=== PATIENT | male | born 1990 | race Caucasian/White ===

== ENCOUNTER 2018-04-09 13:53 | Inpatient (IN) | payer OTHER ==
[2018-04-09 14:37] VITALS: BMI 18.5
--- NOTE | 2018-04-09 16:56 | HP ---
CIWA Score Nausea/Vomitin Muscle Tremors: 2 Anxiety: 2 Agitation: 2 Paroxysmal Sweats: 2 Orientation: 0-Oriented Tacttile Disturbances: 0-None Auditory Disturbances: 0-None Visual Disturbances: 0-None Headache: 2-Mild CIWA-Ar Total Score: 12 - Admission Criteria OASAS Guidelines: Admission for Medically Managed Detox: Requires at least one of the followin. CIWA greater than 12 2. Seizures within the past 24 hours 3. Delirium tremens within the past 24 hours 4. Hallucinations within the past 24 hours 5. Acute intervention needed for co occurring medical disorder 6. Acute intervention needed for co occurring psychiatric disorder 7. Severe withdrawal that cannot be handled at a lower level of care (continued vomiting, continued diarrhea, abnormal vital signs) requiring intravenous medication and/or fluids 8. Patient presents the following: CIWA greater than 12 Admission Criteria Met: Admission criteria met Admission ROS [facility] Chief Complaint: Detox from alcohol, cocaine and THC. 27 yo with no medical problems, here for detox. Was last in detox/rehab at [facility] in 2017 for alcohol. Says he relapsed to use a month after discharge. alcohol- 1 pint/day of whiskey. No h/o seizures/DT's. Last use 2 hours ago. Cocaine- $20/day, last use 2 hours, inhaling THC- 1/4 bag /day DUR- no controlled substances Utox: pos for THC, nicole, AYANA- 0 Allergies/Adverse Reactions: Allergies Allergy/AdvReac Type Severity Reaction Status Date / Time Penicillins Allergy Severe Difficulty Verified 04/09/18 16:11 Breathing Exam Limitations: No Limitations - Ebola screening Have you traveled outside of the country in the last 21 days: No Have you had contact with anyone from an Ebola affected area: No Have you been sick,other than usual withdrawal symptoms: No Do you have a fever: No - Review of Systems Constitutional: No Symptoms Reported Patient History - Patient Medical History Hx Asthma: No Hx Chronic Obstructive Pulmonary Disease (COPD): No Hx Cardiac Disorders: No Hx Hypertension: No Hx Seizures: No Hx Diabetes: No Hx Gastrointestinal Disorders: No Hx Genitourinary Disorders: No Hx Sexually Transmitted Disorders: No Hx Renal Disease (ESRD): No Hx Depression: No Hx Suicide Attempt: No Hx Schizophrenia: No - Patient Surgical History Past Surgical History: No Hx Neurologic Surgery: No Hx Cataract Extraction: No Hx Cardiac Surgery: No Hx Lung Surgery: No Hx Breast Surgery: No Hx Breast Biopsy: No Hx Abdominal Surgery: No Hx Appendectomy: No Hx Cholecystectomy: No Hx Genitourinary Surgery: No Hx Section: No Hx Orthopedic Surgery: No Anesthesia Reaction: No - PPD History Previous Implant?: Yes Documented Results: Negative w/o proof Implanted On Prior R Admission?: No - Smoking Cessation Smoking history: Current every day smoker Have you smoked in the past 12 months: Yes Aproximately how many cigarettes per day: 20 Hx Chewing Tobacco Use: No Initiated information on smoking cessation: Yes 'Breaking Loose' booklet given: 04/09/18 - Substance & Tx. History Hx Alcohol Use: Yes Hx Substance Use: Yes Substance Use Type: Cocaine, Marijuana Hx Substance Use Treatment: Yes - Substances Abused Alcohol Route: Oral Frequency: Daily Amount used: 1 [place] Age of first use: 13 Date of Last Use: 04/09/18 Cocaine Route: Inhalation Frequency: Daily Amount used: $20 Age of first use: 16 Date of Last Use: 04/09/18 Marijuana/Hashish Route: Smoking Frequency: Daily Amount used: 1/4 OF AN OUNCE Age of first use: 11 Date of Last Use: 04/09/18 Family Disease History - Family Disease History Family History: Denies (doesnot know) Admission Physical Exam BHS - Vital Signs Vital Signs: Vital Signs - 24 hr 04/09/18 14:35 Temperature 98.5 F Pulse Rate 94 H Respiratory 18 Rate Blood Pressure 136/96 - Physical General Appearance: Yes: Within Normal Limits HEENTM: Yes: Within Normal Limits Respiratory: Yes: Within Normal Limits Neck: Yes: Within Normal Limits Cardiology: Yes: Within Normal Limits Abdominal: Yes: Within Normal Limits Genitourinary: Yes: Within Normal Limits Back: Yes: Within Normal Limits Musculoskeletal: Yes: Within Normal Limits Extremities: Yes: Within Normal Limits Neurological: Yes: Within Normal Limits Integumentary: Yes: Within Normal Limits Lymphatic: Yes: Within Normal Limits - Diagnostic (1) Alcohol use disorder Current Visit: Yes Status: Acute (2) Cannabis use disorder, mild, abuse Current Visit: Yes Status: Acute (3) Cocaine use disorder Current Visit: Yes Status: Acute (4) Tobacco use disorder Current Visit: Yes Status: Acute BHS Breath Alcohol Content Breath Alcohol Content: 0 Urine Drug Screen - Results Drug Screen Negative: No Urine Drug Screen Results: THC-Marijuana, NICOLE-Cocaine
[2018-04-09] MEDS ORDERED: MAG HYDROX/AL HYDROX/SIMETH 30 ML UNIT-DOSE CUP PO PRN (16:59)
[2018-04-09] MEDS ORDERED: guaiFENesin/D-METHORPHAN HB 10 ML UNIT-DOSE CUPS PO PRN (16:59)
[2018-04-09] MEDS ORDERED: P-EPHED 60MG/TRIPROLIDI 2.5MG TABLET PO PRN (16:59)
[2018-04-09] MEDS ORDERED: MAGNESIUM CITRATE 300 ML BOTTLE PO PRN (16:59)
[2018-04-09] MEDS ORDERED: MENTHOL/PHENOL 1 EACH UD MM PRN (16:59)
[2018-04-09] MEDS ORDERED: LOPERAMIDE HCL 2 MG CAPSULE PO PRN (16:59)
[2018-04-09] MEDS ORDERED: MAGNESIUM HYDROX 2400MG/30ML ORAL SUSPENSION 30 ML CUP PO PRN (16:59)
[2018-04-09] MEDS ORDERED: ACETAMINOPHEN 325 MG TABLET (FP) PO PRN (16:59)
[2018-04-09] MEDS ORDERED: NICOTINE POLACRILEX 4 MG GUM BC PRN (16:59)
[2018-04-09] MEDS ORDERED: IBUPROFEN 400 MG TABLET (FP) PO PRN (16:59)
[2018-04-09] MEDS ORDERED: chlordiazePOXIDE HCL 25 MG CAPSULE ONE (18:40)
[2018-04-09] MEDS ORDERED: chlordiazePOXIDE HCL 25 MG CAPSULE PO ONE (19:00)
[2018-04-09] MEDS ORDERED: MELATONIN 5 MG TABLETS PO PRN (22:00)
[2018-04-09] MEDS: THIAMINE HCL 100 MG TABLET (FP) PO SCH (22:19)
[2018-04-09] MEDS: chlordiazePOXIDE HCL 25 MG CAPSULE PO SCH (22:19)
[2018-04-10] MEDS: chlordiazePOXIDE HCL 25 MG CAPSULE PO SCH ×3 (05:35→18:18)
[2018-04-10] MEDS: PRENATAL VITAMINS W/ FOLIC ACID TABLET (FP) PO SCH (10:18)
[2018-04-10 10:48] LABS: HEMATOCRIT 43.8 % (35.4-49); MCH 32.1 pg (25.7-33.7); MCHC 34.4 g/dl (32.0-35.9); MEAN CELL VOLUME 93.4 fl (80-96); MEAN PLT VOLUME 7.9 fl (7.5-11.1); PLATELET COUNT 319 K/MM3 (134-434); RBC 4.69 M/mm3 (4.00-5.60); RDW 12.5 % (11.9-15.9); WHITE BLOOD COUNT 4.8 K/mm3 (4.0-10.0)
[2018-04-10 11:06] LABS: ALBUMIN 3.9 g/dl (3.4-5.0); ALK PHOS 52 U/L (45-117); ANION GAP 7 MMOL/L (8-16); BILIRUBIN,TOTAL 1.4 mg/dL (0.2-1); BLOOD UREA NITROGEN 14 mg/dL (7-18); CALCIUM 8.7 mg/dL (8.5-10.1); CHLORIDE 107 mmol/L (98-107); CO2 27 mmol/L (21-32); CREATININE 0.8 mg/dL (0.55-1.3); GLUCOSE,RANDOM 96 mg/dL (74-106); POTASSIUM 4.1 mmol/L (3.5-5.1); SGOT/AST 17 U/L (15-37); SGPT/ALT 24 U/L (13-61); SODIUM 141 mmol/L (136-145); TOT PROT 6.5 g/dl (6.4-8.2)
--- NOTE | 2018-04-10 13:18 | PN ---
BHS CIWA - CIWA Score Nausea/Vomitin Muscle Tremors: 3 Anxiety: 3 Agitation: 0-Normal Activity Paroxysmal Sweats: 3 Orientation: 0-Oriented Tacttile Disturbances: 0-None Auditory Disturbances: 0-None Visual Disturbances: 2-Mild Sensitivity Headache: 2-Mild CIWA-Ar Total Score: 16 BHS Progress Note (SOAP) Subjective: Tremors, Sweating, H/A, Body Aches, Nausea. Objective: PATIENT A & O X 3, OBSERVED AMBULATING ON UNIT. IN NO ACUTE DISTRESS. PATIENT REPORTS THAT HIS BP SOMETIMES BECOMES TEMPORARILY ELEVATED HE FEELS "STRESSED." PATIENT DENIES CHEST PAIN. 04/10/18 13:16 Vital Signs Temperature 98.1 F 04/10/18 09:04 Pulse Rate 70 04/10/18 09:04 Respiratory Rate 18 04/10/18 09:04 Blood Pressure 128/78 04/10/18 09:04 O2 Sat by Pulse Oximetry (%) Laboratory Tests 04/10/18 04/10/18 04/10/18 07:00 07:00 07:00 WBC 4.8 RBC 4.69 Hgb 15.0 Hct 43.8 MCV 93.4 MCH 32.1 MCHC 34.4 RDW 12.5 Plt Count 319 MPV 7.9 Sodium 141 Potassium 4.1 Chloride 107 Carbon Dioxide 27 Anion Gap 7 L BUN 14 Creatinine 0.8 Creat Clearance w eGFR > 60 Random Glucose 96 Calcium 8.7 Total Bilirubin 1.4 H AST 17 ALT 24 Alkaline Phosphatase 52 Total Protein 6.5 Albumin 3.9 RPR Titer Nonreactive HIV 1&2 Antibody Screen HIV P24 Antigen 04/10/18 09:20 WBC RBC Hgb Hct MCV MCH MCHC RDW Plt Count MPV Sodium Potassium Chloride Carbon Dioxide Anion Gap BUN Creatinine Creat Clearance w eGFR Random Glucose Calcium Total Bilirubin AST ALT Alkaline Phosphatase Total Protein Albumin RPR Titer HIV 1&2 Antibody Screen Negative HIV P24 Antigen Negative LABS NOTED. 04/10/18 13:17 Assessment: 04/10/18 13:17 WITHDRAWAL SYMPTOMS. Plan: CONTINUE DETOX., CONTINUE TO MONITOR BLOOD PRESSURE.
[2018-04-10] MEDS: chlordiazePOXIDE 5 MG CAPSULE PO PRN (19:30)
[2018-04-10] MEDS: THIAMINE HCL 100 MG TABLET (FP) PO SCH (22:05)
[2018-04-10] MEDS: chlordiazePOXIDE 5 MG CAPSULE PO SCH (22:05)
[2018-04-11] MEDS: chlordiazePOXIDE 5 MG CAPSULE PO SCH ×4 (05:55→22:08)
[2018-04-11] MEDS: PRENATAL VITAMINS W/ FOLIC ACID TABLET (FP) PO SCH (10:18)
--- NOTE | 2018-04-11 16:23 | PN ---
S CIWA - CIWA Score Nausea/Vomitin-No Nausea/No Vomiting Muscle Tremors: 1-None Visible, but [place] Anxiety: 1-Mildly Anxious Agitation: 1-Slight > Activity Paroxysmal Sweats: 1-Minimal Palms Moist Orientation: 0-Oriented Tacttile Disturbances: 0-None Auditory Disturbances: 0-None Visual Disturbances: 0-None Headache: 0-None Present CIWA-Ar Total Score: 4 BHS Progress Note (SOAP) Subjective: s- pt without complaints, doing well with alcohol detox protocol O: Vital Signs - 24 hr 04/10/18 04/10/18 04/11/18 17:46 20:55 00:30 Temperature 98.8 F 98.1 F Pulse Rate 71 73 Respiratory 16 17 18 Rate Blood Pressure 147/92 146/95 04/11/18 04/11/18 04/11/18 03:30 07:46 09:12 Temperature 97.7 F 97.9 F Pulse Rate 59 L 70 Respiratory 18 16 18 Rate Blood Pressure 134/79 145/90 04/11/18 13:41 Temperature 98.1 F Pulse Rate 75 Respiratory 18 Rate Blood Pressure 133/90 Laboratory Tests 04/10/18 04/10/18 04/10/18 07:00 07:00 07:00 WBC 4.8 RBC 4.69 Hgb 15.0 Hct 43.8 MCV 93.4 MCH 32.1 MCHC 34.4 RDW 12.5 Plt Count 319 MPV 7.9 Sodium 141 Potassium 4.1 Chloride 107 Carbon Dioxide 27 Anion Gap 7 L BUN 14 Creatinine 0.8 Creat Clearance w eGFR > 60 Random Glucose 96 Calcium 8.7 Total Bilirubin 1.4 H AST 17 ALT 24 Alkaline Phosphatase 52 Total Protein 6.5 Albumin 3.9 RPR Titer Nonreactive HIV 1&2 Antibody Screen HIV P24 Antigen 04/10/18 09:20 WBC RBC Hgb Hct MCV MCH MCHC RDW Plt Count MPV Sodium Potassium Chloride Carbon Dioxide Anion Gap BUN Creatinine Creat Clearance w eGFR Random Glucose Calcium Total Bilirubin AST ALT Alkaline Phosphatase Total Protein Albumin RPR Titer HIV 1&2 Antibody Screen Negative HIV P24 Antigen Negative a/p: continue alcohol detox protocol, pt doing well
[2018-04-11] MEDS: chlordiazePOXIDE 5 MG CAPSULE PO PRN (19:39)
[2018-04-11] MEDS: THIAMINE HCL 100 MG TABLET (FP) PO SCH (22:08)
[2018-04-12] MEDS: chlordiazePOXIDE 5 MG CAPSULE PO SCH ×4 (06:20→22:18)
[2018-04-12] MEDS ORDERED: COLLOIDAL OATMEAL 1 BAR EACH TP PRN (08:58)
[2018-04-12] MEDS: PRENATAL VITAMINS W/ FOLIC ACID TABLET (FP) PO SCH (10:45)
--- NOTE | 2018-04-12 16:13 | PN ---
BHS Progress Note (SOAP) Subjective: Interrupted Sleep. Objective: PATIENT A & O X 3, OBSERVED AMBULATING ON UNIT. IN NO ACUTE DISTRESS. 04/12/18 16:10 Vital Signs Temperature 98.1 F 04/12/18 13:26 Pulse Rate 76 04/12/18 13:26 Respiratory Rate 18 04/12/18 13:26 Blood Pressure 166/77 04/12/18 13:26 O2 Sat by Pulse Oximetry (%) Laboratory Tests 04/10/18 04/10/18 04/10/18 07:00 07:00 07:00 WBC 4.8 RBC 4.69 Hgb 15.0 Hct 43.8 MCV 93.4 MCH 32.1 MCHC 34.4 RDW 12.5 Plt Count 319 MPV 7.9 Sodium 141 Potassium 4.1 Chloride 107 Carbon Dioxide 27 Anion Gap 7 L BUN 14 Creatinine 0.8 Creat Clearance w eGFR > 60 Random Glucose 96 Calcium 8.7 Total Bilirubin 1.4 H AST 17 ALT 24 Alkaline Phosphatase 52 Total Protein 6.5 Albumin 3.9 RPR Titer Nonreactive HIV 1&2 Antibody Screen HIV P24 Antigen 04/10/18 09:20 WBC RBC Hgb Hct MCV MCH MCHC RDW Plt Count MPV Sodium Potassium Chloride Carbon Dioxide Anion Gap BUN Creatinine Creat Clearance w eGFR Random Glucose Calcium Total Bilirubin AST ALT Alkaline Phosphatase Total Protein Albumin RPR Titer HIV 1&2 Antibody Screen Negative HIV P24 Antigen Negative LABS NOTED. Assessment: 04/12/18 16:11 WITHDRAWAL SYMPTOMS. Plan: CONTINUE DETOX. PATIENT SCHEDULED FOR D/C TOMORROW.
[2018-04-12] MEDS: THIAMINE HCL 100 MG TABLET (FP) PO SCH (22:18)
[2018-04-13] MEDS: chlordiazePOXIDE 5 MG CAPSULE PO SCH (05:14)
--- NOTE | 2018-04-13 08:50 | DS ---
[facility] Detox Discharge Summary Admission Date: 04/09/18 Discharge Date: 04/13/18 - History Present History: Alcohol Dependence, Cannabis Dependence, Cocaine Dependence - Physical Exam Results Vital Signs: Vital Signs Temperature 97.7 F 04/13/18 06:00 Pulse Rate 62 04/13/18 06:00 Respiratory Rate 18 04/13/18 06:30 Blood Pressure 126/75 04/13/18 06:00 O2 Sat by Pulse Oximetry (%) - Treatment Hospital Course: Detox Protocol Followed, Detoxed Safely, Responded well, Discharged Condition Good, Rehab Referral Accepted - Medication Discharge Medications: Ambulatory Orders NK [No Known Home Medication] 04/09/18 - Diagnosis (1) Alcohol use disorder Current Visit: Yes Status: Acute (2) Cannabis use disorder, mild, abuse Current Visit: Yes Status: Chronic (3) Cocaine use disorder Current Visit: Yes Status: Acute (4) Tobacco use disorder Current Visit: Yes Status: Acute - AMA Did Patient Leave Against Medical Advice: No (shonna ATC)
[2018-04-13 09:40] VITALS: BP 142/89; PULSE 81; TEMP 97.3
== END 2018-04-13 08:58 | disposition home or self-care (01) | DRG 774 ==
LOC: YASAS 13:53 → Y6N 16:50
PROVIDERS: ADMIT Neuromusculoskeletal Medicine & OMM; ATTEND Neuromusculoskeletal Medicine & OMM
PROC: HZ2ZZZZ Detoxification Services for Substance Abuse Treatment (ICD-10-PCS; principal; 2018-04-09)
DX: F10.230 Alcohol dependence with withdrawal, uncomplicated (principal); F14.20 Cocaine dependence, uncomplicated; F12.20 Cannabis dependence, uncomplicated; F17.210 Nicotine dependence, cigarettes, uncomplicated
CPT/HCPCS: 36415; 80053; 85027; 86593; 87389